=== PATIENT | female | born 1965 | race Caucasian/White ===

== ENCOUNTER 2017-08-18 00:35 | Day surgery (SDC) | payer MEDICARE ==
[2016-11-09 10:53] VITALS: Ht 160 cm; Wt 111.1 kg
[~2017-08-18] VITALS: Ht 160 cm; Wt 111.1 kg
[2017-08-18] VITALS (7 sets, daily range): BP systolic 114–164; BP diastolic 63–99
[~2017-08-18 00:35] MED LIST: ASPI-757 PO; ATOR20TA65 PO; CYCL10TA29 PO; DICL-195 PO; GABA-506 PO; GLIM4TAB50 PO; LEVI SUBQ; LEVO25TA61 PO; LOSA25TA50 PO; METF-51 PO; METO25TA93 PO; PANT40TA65 PO; PROM-110 PO
[2017-08-18] MEDS ORDERED: PROPOFOL EMUL(*) 10MG/ML 20 ML 40 ML ONE (07:41)
[2017-08-18] MEDS ORDERED: MIDAZOLAM 2 MG/2 ML VIAL IVP PRN (12:05)
[2017-08-18] MEDS ORDERED: NORMOSOL R SOLN(*) 1000 ML BAG 1,000 ML IV PRN (12:05)
[2017-08-18] MEDS ORDERED: LIDOCAINE/SOD BICARB 8.4% SYR ID ONE (12:05)
[2017-08-18] MEDS ORDERED: PROPOFOL EMUL(*) 10MG/ML 20 ML 20 ML ONE (13:17)
== END 2017-08-18 14:52 | disposition home or self-care (01) ==
LOC: OR 00:35
PROVIDERS: ATTEND Family Medicine
DX: Z12.11 Encounter for screening for malignant neoplasm of colon (principal); D12.5 Benign neoplasm of sigmoid colon; E11.9 Type 2 diabetes mellitus without complications
CPT/HCPCS: 00811; 36416; 45385; 82948; J2704; 88305

== ENCOUNTER 2018-06-13 14:51 | Outpatient (RCR) | payer MEDICARE ==
[2016-11-09 10:53] VITALS: Ht 157.5 cm
[~2018-06-13 14:51] MED LIST changes: -GABA-506 PO; +GABA-535 PO; -LOSA25TA50 PO; +LOSA25TA57 PO
--- NOTE | 2018-06-15 12:46 | Medical Nutrition Therapy ---
Nutrition Anthropometrics Height (Inches): 62 Weight (Pounds): 245 BMI: 44.8 Harpreet Nutrition Score: Harpreet Nutrition Risk Score: Dietary Referral Nutrition Risk Factors: Nutrition Risk Comment: Physical Findings Physical Appearance: Morbidly Obese 40+ Skin Appearance Skin Appearance: Edema Edema Location Modifier: Edema Location: Type of Edema: Degree of Edema: Gastrointestinal Symptoms GI Symtoms: Tube Present: Bowel Sounds: Recent Bowel Pattern: Stool Characteristics: Nutritional Education Nutrition Education Topic: Diabetic Nutrition Learning Readiness: Interested Teaching Methods: Discussion, Handout, Demonstration Response to Teaching: Verbalize understanding Teaching Recipient: Patient, Significant Other Nutrition Counseling: Late entry for 06/13: Pt and attended session. Pt scheduled for insulin pump training on 06/14. Pt desires education on CHO counting. Pt states has dx of bipolar and is struggling with anxiety issue at this time possibly r/t change to insulin pump and insecurities with being unable to afford her insulin. Pt was referred to S and talked with counselor. Counselor informed RD that pt was at no harm to self and others and ok to continues session. Reviewed foods containing CHO and discussed glycemic response to processed CHO vs high fiber CHO. Pt eats 1 large meals and then snacks throughout day. Pt takes 15-20gm for ~90gm CHO. Recommend start at CHO ratio of 5. Reviewed how insulin pump operates and how it handles both her long acting and short acting insulin so she will only need her humalog. Reminded pt to bring pump and insulin to training. Pt states she has not been taking insulin lately as she can't affort it. Recommend pt check with pharmacist. If pt unable to get insulin, will provide training but will not hook pt up to pump until she is able to get insulin. At end of session, pt stated she didn't feel as anxious as we were able to address her concerns. 06/14 Pt called and canciled pump instuction r/t having a migraine. Pt states she was able to get regular insulin. Informed pt that she needed rapid insulin (Humolog or Novolog) and regular insulin will not work in pump. Pump training delayed until Jul 05 to allow pt to make sure she had correct insulin and is mentally ready to start pump. Nutrition Monitoring & Eval RD Patient Assessment Time: [address] Assessment Type: RD Education Nutritional Comment: Provided 60 minutes diabetes education focusing on nutrtion and how insulin pumps function on 06/13. Copies To Copies to: NEPTALI PITTS PA-C ; ZEESHAN MARTE Jun 15, 2018 12:46
--- NOTE | 2018-07-12 16:19 | Medical Nutrition Therapy ---
Nutritional Education Nutrition Education Topic: Diabetic Nutrition Learning Readiness: Interested Teaching Methods: Discussion, Handout, Demonstration Response to Teaching: Verbalize understanding, Reinforcement needed Teaching Recipient: Patient, Significant Other Nutrition Counseling: Provided insulin pump training and inserted insulin pump. The following insulin pump setting were made: Basal rate; 1.7 Max basal 2.5 CHO ratio: 5 pre-set bolis 13 Max bous 18 ISF 26 Active insulin time: 3 hrs target range 120-160 Target range was set higher than usual d/t pt states has been running over 200. Concern that pt will experience hypoglycemic symptoms without hypoglycemia until body accustom to lower rate. Recommend to pt that range will be lowered when she gets used to lower BG. Pt was able to successfully insert pump. BG taken at that time was > 400. Pt states has not been taking insulin for over 3 weeks. Will call pt within 24 hrs and again 3 days. Pt was instructed to check Bg before meals, 2 hrs after meals, bedtime and 2:00 am. Pt stays up unti midnight or 2:00 am. May need to monitor at alternative times to determine BG while sleeping. Nutrition Monitoring & Eval RD Patient Assessment Time: [address] Assessment Type: RD Education Nutritional Comment: Provided 2hrs diabetes education focusing on insulin pump education. Copies To Copies to: NEPTALI PITTS PA-C ; ZEESHAN MARTE Jul 12, 2018 16:19
--- NOTE | 2018-07-13 14:32 | Medical Nutrition Therapy ---
Nutritional Education Nutrition Education Topic: Diabetic Nutrition (insulin pump management) Teaching Recipient: Patient Nutrition Counselin hr phone call f/u @ 11:30 AM Pt reports the following B 11:20 AM ( upon pump insersion. Pt states has not taken insulin "for weeks".) 395 2:15 PM ( 1 hr after meal) 332 5:39 PM (pre-dinner) 379 7:18 PM ( 1 hr after dinner) 221 1:30 AM Pt has not taken any other Bg this morning. Pt stated she had just gotten up. Reminded pt to take BG 2 hrs after meals. Encouraged pt to cont current basal rate and will increase basal if cont high BG. Pt reports no concerns. Will f/u on Tuesday. Nutrition Monitoring & Eval RD Patient Assessment Time: [address] Assessment Type: RD Education Nutritional Comment: Provided 15 minute f/u phone call 24 hrs s/p insulin pump training and insertion. Copies To Copies to: NEPTALI PITTS PA-C ; ZEESHAN MARTE Jul 13, 2018 14:32
--- NOTE | 2018-07-14 10:45 | Medical Nutrition Therapy ---
Nutritional Education Nutrition Education Topic: Diabetic Nutrition (insulin pump management) Learning Readiness: Interested Teaching Methods: Discussion Response to Teaching: Verbalize understanding Teaching Recipient: Patient Nutrition Counseling: Reviewed BG numbers: 221 1:20 AM 250 12:10 PM pre meal 247 4:15 PM 4 hr after meal 363 5:35 PM premeal 260 8:00 2.5 hr after meal 209 2:00 AM 191 8:20 AM pre meal Pt still running high. Over phone, pt successfully changed basal rate to 1.8 from 1.7. Believe basal may need to be increased more, but changing slowly to ensure pt not having lows. Reminded pt to strive for BG before each meal and 2 hrs after meal. Pt has been doing CHO counting. Will f/u with phone call 07/15 Nutrition Monitoring & Eval RD Patient Assessment Time: [address] Assessment Type: RD Education Nutritional Comment: Provided 15 minute f/u phone call 24 hrs s/p insulin pump training and insertion. Copies To Copies to: NEPTALI PITTS PA-C ; ZEESHAN MARTE Jul 14, 2018 10:45
--- NOTE | 2018-07-19 08:44 | Medical Nutrition Therapy ---
Nutritional Education Nutrition Education Topic: Diabetic Nutrition Teaching Methods: Discussion Teaching Recipient: Patient Nutrition Counseling: f/u phone call. Pt states is feeling better with lower BG. Pt had one reading of 127 @ 4:00AM. Other readings 170- 240's. Recommend pt increase basal to 1.9 ( inital rate 1.70 Pt states has been doing CHO counting. Will cont to monitor. Nutrition Monitoring & Eval RD Patient Assessment Time: [address] Assessment Type: RD Education Nutritional Comment: Provided 15 minute f/u phone call 6 days s/p insulin pump training and insertion. Copies To Copies to: NEPTALI PITTS PA-C ; ZEESHAN MARTE Jul 19, 2018 08:44
== END 2018-07-18 ==
LOC: DIET 14:51
PROVIDERS: ATTEND Physician Assistant
DX: Z71.3 Dietary counseling and surveillance (principal); E11.65 Type 2 diabetes mellitus with hyperglycemia; F31.9 Bipolar disorder, unspecified; Z79.84 Long term (current) use of oral hypoglycemic drugs; Z79.4 Long term (current) use of insulin
CPT/HCPCS: G0108 ×2